=== PATIENT | female | born 1990 | race Caucasian/White ===

== ENCOUNTER 2018-02-28 03:36 | Emergency (ER) | payer MEDICAID, OTHER ==
[~2018-02-28 03:36] MED LIST: BACDS PO; LEVO1TAB48 PO; PHENA200 PO
[2018-02-28] MEDS ORDERED: PREN-127 PO (03:48)
[2018-02-28] MEDS ORDERED: METO-224 PO (03:48)
--- NOTE | 2018-02-28 03:53 | ER Report ---
History and Physical Time Seen By MD: 03:53 Hx. of Stated Complaint: pt reports vomiting since 1330, no other symptoms. 12 wks HPI/ROS CHIEF COMPLAINT: vomiting HISTORY OF PRESENT ILLNESS: This is a 27 year old female. She has had vomiting since this afternoon. Not able to keep any food or liquid down since then. Feels dehydrated. Urine less and darker. Some abdominal cramping, but feels this is from her vomiting. Has some lower left back and lower abdominal left lower and suprapubic pain. No vaginal bleeding or cramping. No vaginal discharge. Normal bowels. Mild shortness of breath with the vomiting. No chest pain. Has note really had any problems with vomiting this . Recently moved from [place]. No family members with nausea and vomiting. Allergies: Coded Allergies: Penicillins (Verified Allergy, Mild, 02/28/18) Home Meds Active Scripts Promethazine Hcl (PROMETHAZINE HCL) 25 Mg Tablet, 25 MG PO Q8H Y for NAUSEA/ VOMITING, #20 TAB 0 Refills Prov:MEGAN ESCOBEDO MD 02/28/18 Reported Medications Vits W-Ca,Fe,Fa(<1MG) ( VITAMINS) 1 Each Tablet, 1 EACH PO DAILY, TAB 02/28/18 Metoclopramide Hcl (METOCLOPRAMIDE HCL) 10 Mg Tablet, 10 MG PO QID Y for NAUSEA/ VOMITING 02/28/18 Discontinued Reported Medications Phenazopyridine Hcl (Pyridium) 200 Mg Tab, 200 MG PO TID, 0 Refills 09/15/10 Trimethoprim/Sulfamethoxazole (Bactrim Ds 160-800 Mg) 1 Ea Tab, 1 EA PO BID, # 14 0 Refills 09/15/10 Levonorgestrel-Eth Estra (Lutera) 1 Tab Tablet, 1 TAB PO, 0 Refills 09/15/10 Reviewed Nurses Notes: Yes Hx Substance Use Disorder: No Hx Alcohol Use: Yes (3 BEERS THE LLAST 4 DAYS) Constitutional Vital Sign - Last 24 Hours 02/28/18 02/28/18 02/28/18 02/28/18 03:40 03:43 03:51 04:00 Temp 98.3 Pulse 78 87 Resp 16 B/P (MAP) 104/64 104/64 (77) 101/70 (80) Pulse Ox 97 96 O2 Delivery Room Air 02/28/18 02/28/18 02/28/18 02/28/18 04:06 04:11 04:26 04:30 Pulse 82 92 86 B/P (MAP) 101/66 (78) Pulse Ox 97 97 99 02/28/18 02/28/18 02/28/18 02/28/18 04:41 04:46 05:03 05:16 Pulse 84 89 97 B/P (MAP) 88/60 (69) Pulse Ox 98 97 98 02/28/18 02/28/18 02/28/18 02/28/18 05:30 05:31 05:36 05:41 Pulse 87 B/P (MAP) 97/71 (80) Pulse Ox 95 100 94 Physical Exam General Appearance: The patient is alert, has no immediate need for airway protection and no current signs of toxicity. ENT: Normal oral mucosa. Moist mucous membranes. Respiratory: Chest is non tender, lungs are clear to auscultation. Cardiac: regular rate and rhythm Gastrointestinal: Abdomen is soft non-distended, some pain with palpation suprapubic and left lower, some pain in left flank and lower back, bowel sounds normal. DIFFERENTIAL DIAGNOSIS: After history and physical exam differential diagnosis was considered for vomiting today, feeling dehydrated, could be urinary tract infection based on location of pain and the vomiting, also possible viral syndrome Medical Decision Making Data Points Result Diagram: 02/28/18 0351 02/28/18 0351 Laboratory Hematology Test 02/28/18 03:41 02/28/18 03:51 Urine Color Yellow Urine Clarity Clear Urine pH 5.0 pH (4.8-9.5) Urine Specific [place] 1.020 Urine Protein Negative mg/dL (NEGATIVE) Urine Glucose (UA) Negative mg/dL (NEGATIVE) Urine Ketones 20 mg/dL (NEGATIVE) Urine Blood Negative (NEGATIVE) Urine Nitrite Negative (NEGATIVE) Urine Bilirubin Negative (NEGATIVE) Urine Urobilinogen Negative mg/dL (0.2-1.9) Urine Leukocyte Esterase Negative (NEGATIVE) Urine RBC 1 /HPF (0-2/HPF) Urine WBC 1 /HPF (0-5/HPF) Urine Squamous Epithelial Cells Many /LPF (</=FEW) Urine Transitional Epithelial Cells Few /LPF (NONE-FEW) Urine Bacteria Negative /HPF (NONE-FEW) Urine Mucus Few /HPF (NONE-FEW) Red Blood Count 4.44 M/uL (4.17-5.56) Mean Corpuscular Volume 84.3 fL (80.0-96.0) Mean Corpuscular Hemoglobin 29.6 pg (26.0-33.0) Mean Corpuscular Hemoglobin Concent 35.1 g/dL (32.0-36.0) Red Cell Distribution Width 15.2 % (11.5-14.5) Mean Platelet Volume 8.4 fL (7.2-11.1) Neutrophils (%) (Auto) 85.1 % (39.4-72.5) Lymphocytes (%) (Auto) 9.7 % (17.6-49.6) Monocytes (%) (Auto) 4.7 % (4.1-12.4) Eosinophils (%) (Auto) 0.2 % (0.4-6.7) Basophils (%) (Auto) 0.3 % (0.3-1.4) Nucleated RBC Relative Count (auto) 0.0 /100WBC Neutrophils # (Auto) 6.4 K/uL (2.0-7.4) Lymphocytes # (Auto) 0.7 K/uL (1.3-3.6) Monocytes # (Auto) 0.4 K/uL (0.3-1.0) Eosinophils # (Auto) 0.0 K/uL (0.0-0.5) Basophils # (Auto) 0.0 K/uL (0.0-0.1) Nucleated RBC Absolute Count (auto) 0.00 K/uL Sodium Level 133 mmol/L (137-145) Potassium Level 3.5 mmol/L (3.5-5.0) Chloride Level 100 mmol/L (98-107) Carbon Dioxide Level 23 mmol/L (22-31) Blood Urea Nitrogen 9 mg/dl (7-18) Creatinine 0.50 mg/dl (0.52-1.04) Glomerular Filtration Rate Calc > 60.0 Random Glucose 101 mg/dl (75-110) Calcium Level 9.2 mg/dl (8.4-10.2) Total Bilirubin 0.6 mg/dl (0.2-1.3) Aspartate Amino Transf (AST/SGOT) 17 U/L (0-35) Alanine Aminotransferase (ALT/SGPT) 19 U/L (0-56) Alkaline Phosphatase 64 U/L (0-126) Total Protein 7.9 g/dl (6.3-8.2) Albumin 4.4 g/dl (3.5-5.0) Chemistry Test 02/28/18 03:41 02/28/18 03:51 Urine Color Yellow Urine Clarity Clear Urine pH 5.0 pH (4.8-9.5) Urine Specific [place] 1.020 Urine Protein Negative mg/dL (NEGATIVE) Urine Glucose (UA) Negative mg/dL (NEGATIVE) Urine Ketones 20 mg/dL (NEGATIVE) Urine Blood Negative (NEGATIVE) Urine Nitrite Negative (NEGATIVE) Urine Bilirubin Negative (NEGATIVE) Urine Urobilinogen Negative mg/dL (0.2-1.9) Urine Leukocyte Esterase Negative (NEGATIVE) Urine RBC 1 /HPF (0-2/HPF) Urine WBC 1 /HPF (0-5/HPF) Urine Squamous Epithelial Cells Many /LPF (</=FEW) Urine Transitional Epithelial Cells Few /LPF (NONE-FEW) Urine Bacteria Negative /HPF (NONE-FEW) Urine Mucus Few /HPF (NONE-FEW) White Blood Count 7.6 k/uL (4.5-11.0) Red Blood Count 4.44 M/uL (4.17-5.56) Hemoglobin 13.1 g/dL (12.0-16.0) Hematocrit 37.4 % (34.0-47.0) Mean Corpuscular Volume 84.3 fL (80.0-96.0) Mean Corpuscular Hemoglobin 29.6 pg (26.0-33.0) Mean Corpuscular Hemoglobin Concent 35.1 g/dL (32.0-36.0) Red Cell Distribution Width 15.2 % (11.5-14.5) Platelet Count 189 K/uL (150-450) Mean Platelet Volume 8.4 fL (7.2-11.1) Neutrophils (%) (Auto) 85.1 % (39.4-72.5) Lymphocytes (%) (Auto) 9.7 % (17.6-49.6) Monocytes (%) (Auto) 4.7 % (4.1-12.4) Eosinophils (%) (Auto) 0.2 % (0.4-6.7) Basophils (%) (Auto) 0.3 % (0.3-1.4) Nucleated RBC Relative Count (auto) 0.0 /100WBC Neutrophils # (Auto) 6.4 K/uL (2.0-7.4) Lymphocytes # (Auto) 0.7 K/uL (1.3-3.6) Monocytes # (Auto) 0.4 K/uL (0.3-1.0) Eosinophils # (Auto) 0.0 K/uL (0.0-0.5) Basophils # (Auto) 0.0 K/uL (0.0-0.1) Nucleated RBC Absolute Count (auto) 0.00 K/uL Glomerular Filtration Rate Calc > 60.0 Calcium Level 9.2 mg/dl (8.4-10.2) Total Bilirubin 0.6 mg/dl (0.2-1.3) Aspartate Amino Transf (AST/SGOT) 17 U/L (0-35) Alanine Aminotransferase (ALT/SGPT) 19 U/L (0-56) Alkaline Phosphatase 64 U/L (0-126) Total Protein 7.9 g/dl (6.3-8.2) Albumin 4.4 g/dl (3.5-5.0) Urinalysis Test 02/28/18 03:41 Urine Color Yellow Urine Clarity Clear Urine pH 5.0 pH (4.8-9.5) Urine Specific [place] 1.020 Urine Protein Negative mg/dL (NEGATIVE) Urine Glucose (UA) Negative mg/dL (NEGATIVE) Urine Ketones 20 mg/dL (NEGATIVE) Urine Blood Negative (NEGATIVE) Urine Nitrite Negative (NEGATIVE) Urine Bilirubin Negative (NEGATIVE) Urine Urobilinogen Negative mg/dL (0.2-1.9) Urine Leukocyte Esterase Negative (NEGATIVE) Urine RBC 1 /HPF (0-2/HPF) Urine WBC 1 /HPF (0-5/HPF) Urine Squamous Epithelial Cells Many /LPF (</=FEW) Urine Transitional Epithelial Cells Few /LPF (NONE-FEW) Urine Bacteria Negative /HPF (NONE-FEW) Urine Mucus Few /HPF (NONE-FEW) ED Course/Re-evaluation Clinical Indication for ER IV: Hydration, IV Access ED Course Phenergan IV and Benadryl IV given along with a liter of normal saline. The phenergan made her feel a little jumpy. She does feel much better. Still some nausea, but no more vomiting. Started a second liter of saline, then discharged home. Decision to Disposition Date: Feb 28, 2018 Decision to Disposition Time: 05:39 Depart Departure Latest Vital Signs Vital Signs Date Time Temp Pulse Resp B/P (MAP) Pulse Ox O2 Delivery O2 Flow Rate FiO2 02/28/18 05:41 94 02/28/18 05:36 87 02/28/18 05:30 97/71 (80) 02/28/18 03:40 98.3 16 Room Air Impression: Primary Impression: Vomiting during Condition: Improved Disposition: HOME OR SELF-CARE New Scripts Promethazine Hcl (PROMETHAZINE HCL) 25 Mg Tablet 25 MG PO Q8H Y for NAUSEA/VOMITING, #20 TAB 0 Refills Prov: MEGAN ESCOBEDO MD 02/28/18 Patient Instructions: Nausea and Vomiting in (ED) Additional Instructions: Small frequent sips of fluids. You can use Phenergan 25mg, one every 8 hours as needed for vomiting. Make an appointment to establish care with a local TIRE REPAIR MECHANIC for further care. Return to the ER as needed for further nausea/vomiting. MEGAN ESCOBEDO MD Feb 28, 2018 03:53
[2018-02-28] MEDS ORDERED: NS(*) 0.9% 1000 ML BAG 1,000 ML IV ONE ×2 (04:00→05:00)
[2018-02-28] MEDS ORDERED: PROMETHAZINE 25 MG/ML 1 ML AMP IVP ONE (04:00)
[2018-02-28] MEDS ORDERED: diphenhydrAMINE 50 MG/ML VIAL IVP ONE (04:00)
[2018-02-28 04:17] LABS: PLATELET COUNT, AUTOMATED 189 K/uL (150-450)
[2018-02-28 05:30] VITALS: BP 97/71
[2018-02-28] MEDS ORDERED: PROM-110 PO (05:40)
== END 2018-02-28 05:45 | disposition home or self-care (01) ==
LOC: ER 04:03
DX: O21.9 Vomiting of pregnancy, unspecified (principal); Z3A.12 12 weeks gestation of pregnancy; M54.5 Low back pain
CPT/HCPCS: 81001; 85025; 87088; 96361; 96374; 96375; 99284; J1200; J2550; J7030; 82040; 82247; 82310; 82374; 82435; 82565; 82947; 84075; 84132; 84155; 84295; 84450; 84460; 84520

== ENCOUNTER → 2018-04-27 | Outpatient (CLI) | payer MEDICAID ==
[~2018-04-27] MED LIST changes: +FERR159T PO; +METO-224 PO; +PREN-127 PO; +PROM-110 PO
--- NOTE | 2018-04-27 12:24 | RADIOLOGY IMAGING REPORT ---
FACILITY: [facility] - [place] PATIENT NAME: Antonia Woods : 1990 MR: [id number] V: [id number] EXAM DATE: ORDERING PHYSICIAN: YUE CAMACHO TECHNOLOGIST: Location: [facility] - [place] Patient: Antonia Woods : 1990 Visit/Account:[id number] Date of Sevice: 04/27/2018 OB ANATOMICAL SURVEY HISTORY: Anatomical survey COMPARISON: None. TECHNIQUE: Transabdominal imaging was performed for assessment of the fetus and maternal pelvic s tructures. Transvaginal imaging was not performed. FINDINGS: Intrauterine gestations: One. presentation: Cephalic. heart rate: 155 bpm. Amniotic fluid volume: Normal; ANTONIO 17.42 cm; MVP 5.51 cm. Placenta: Posterior. Uterus: Gravid, otherwise grossly unremarkable where visualized. Maternal adnexa/ovaries: Grossly unremarkable, ovaries not visualized. Cervix: Grossly long and closed. Gestational Parameters: BPD: 4.87 cm, 43rd percentile HC: 18.26 cm, 31st percentile AC: 15.76 cm, 45th percentile FL: 3.52 cm, 50th percentile Average ultrasound age (AUA): 21 weeks/ zero days Estimated age based on LMP: 20 weeks/ six days, 50th percentile Estimated weight (EFW): 389 grams +/- 57 grams Anatomic Survey: Intracranial structures, 4-chamber heart, stomach, kidneys, urinary bladder, spine, 3-vessel cord and cord insertion are unremarkable. Two upper and two lower extremities visualized. IMPRESSION: Single viable fetus in cephalic presentation with an estimated gestational age of 21 weeks and zero d ays by measurements. Estimated weight is 389 g Normal ANTONIO 17.42 cm Report Dictated By: Della Dickinson MD at 04/27/2018 12:17 PM Report E-Signed By: Della Dickinson MD at 04/27/2018 12:21 PM WSN:[email or web address]
== END ==
LOC: RAD 08:01
PROVIDERS: ATTEND Student in an Organized Health Care Education/Training Program
DX: Z34.92 Encounter for supervision of normal pregnancy, unspecified, second trimester (principal); Z3A.21 21 weeks gestation of pregnancy

== ENCOUNTER → 2018-05-28 | Outpatient (CLI) | payer MEDICAID ==
[~2018-05-28] VITALS: Ht 160 cm; Wt 63.0 kg
[~2018-05-28] MED LIST changes: +FAMOTIDINE 20 MG TAB PO ONE; +ONDANSETRON 4 MG ODT TABDP SL ONE
[2018-05-28 12:30] VITALS: Ht 160 cm; Wt 63.0 kg
--- NOTE | 2018-05-28 14:30 | RADIOLOGY IMAGING REPORT ---
FACILITY: [facility] - [place] PATIENT NAME: Antonia Woods : 1990 MR: [id number] V: [id number] EXAM DATE: [id number] ORDERING PHYSICIAN: DAYLIN IRELAND TECHNOLOGIST: Location: [facility] Patient: Antonia Woods : 1990 Visit/Account:[id number] Date of Sevice: 05/28/2018 Limited OB ultrasound Indication: 25 week gestation with cramping and decreased movement. Comparison: Ultrasound dated April 27, 2018. FINDINGS: Intrauterine gestations: one presentation: Vertex heart rate: 146 bpm Amniotic fluid index: 22.5 cm Largest amniotic fluid pocket 6.3 cm Placenta: Posterior without previa. No evidence for abruption. Cervix: Not well visualized Gestational Parameters: BPD: 6.15 cm 25 weeks and 0 days HC: 22.80 cm 24 weeks and 6 days AC: 20.20 cm 24 weeks and 6 days FL: 4.56 cm 25 weeks and 1 day Average ultrasound age (AUA): 25 weeks and 0 days Estimated gestational age based on given LMP datin weeks and 1 day PASQUALE: 09/10/2018 based on today's ultrasound age. Estimated weight (EFW): 731 g +/-110 g EFW for given LMP datin percentile IMPRESSION: 1. No acute findings. No evidence for abruption. 2. Single live intrauterine gestation; estimated ultrasound age 25 weeks and 0 days. Report Dictated By: Rubio Lan MD at 05/28/2018 2:22 PM Report E-Signed By: Rubio Lan MD at 05/28/2018 2:27 PM WSN:[id number]
== END ==
LOC: L&D 12:01 → UNDOADMIN 12:04 → OB 12:04 → UNDODISIN 15:05 → EDSTATUS 05-29 11:22
PROVIDERS: ATTEND Obstetrics & Gynecology
DX: O26.892 Other specified pregnancy related conditions, second trimester (principal); Z3A.25 25 weeks gestation of pregnancy
CPT/HCPCS: 59025; 76815; S0119

== ENCOUNTER → 2018-06-21 | Outpatient (CLI) | payer MEDICAID ==
[2018-05-28 12:30] VITALS: BMI 24.6
[~2018-06-21] MED LIST changes: +ALB18R INH; +AZIT-18 PO; +DIPH0.5D12 IM; -FAMOTIDINE 20 MG TAB PO ONE; -ONDANSETRON 4 MG ODT TABDP SL ONE; +PRED20TA6 PO
[2018-06-21 10:37] LABS: PLATELET COUNT, AUTOMATED 187 K/uL (150-450)
== END ==
LOC: LAB 09:12
PROVIDERS: ATTEND Student in an Organized Health Care Education/Training Program
DX: Z34.92 Encounter for supervision of normal pregnancy, unspecified, second trimester (principal)
CPT/HCPCS: 36415; 82950; 85025

== ENCOUNTER 2018-06-23 16:03 | Emergency (ER) | payer MEDICAID ==
[2018-05-28 12:30] VITALS: Wt 64.9 kg
[~2018-06-23 16:03] MED LIST changes: -ALB18R INH; -AZIT-18 PO; -PRED20TA6 PO
--- NOTE | 2018-06-23 16:13 | ER Report ---
History and Physical Time Seen By MD: 16:14 Hx. of Stated Complaint: upper resp symptoms HPI/ROS CHIEF COMPLAINT: Cough, shortness of breath HISTORY OF PRESENT ILLNESS: 28-year-old female patient presents to emergency mena with complaint of cough and shortness of breath. Patient states she's been feeling ill for a day and a half. She states that she is taken some Robitussin cough syrup which has not seemed to help with her cough. She denies having any fevers or chills. She states that she does have a productive cough. She states that she's noticed some shortness of breath with eating. REVIEW OF SYSTEMS: Respiratory: As noted above Cardiovascular: No chest pain, no palpitations. Gastrointestinal: No vomiting, no abdominal pain. Musculoskeletal: No back pain. Allergies: Coded Allergies: Penicillins (Verified Allergy, Mild, 06/23/18) Home Meds Active Scripts Albuterol Sulfate (VENTOLIN HFA) 18 Gm Inh, 2 PUFF INH Q4-6H PRN for SHORTNESS OF BREATH, #1 INH Prov:LI [facility] 06/23/18 Prednisone (PREDNISONE) 20 Mg Tablet, 40 MG PO DAILY, #10 TAB Prov:LI GLORIA [facility] 06/23/18 Azithromycin 250 Mg Tab (AZITHROMYCIN 250 MG TAB) 250 Mg Tablet, 1 TAB PO QDAY, #6 TAB Take 2 tabs today and then 1 tab a day until gone. Prov:LI GLORIA [facility] 06/23/18 Promethazine Hcl (PROMETHAZINE HCL) 25 Mg Tablet, 25 MG PO Q8H PRN for NAUSEA/VOMITING, #20 TAB 0 Refills Prov:DOUGYUE FRANCIS DO 03/20/18 Reported Medications Ferrous Sulfate, Dried (IRON) Unknown Strength Tablet.er, PO 03/20/18 Vits W-Ca,Fe,Fa(<1MG) ( VITAMINS) 1 Each Tablet, 1 EACH PO DAILY, TAB 02/28/18 Metoclopramide Hcl (METOCLOPRAMIDE HCL) 10 Mg Tablet, 10 MG PO QID PRN for NAUSEA/VOMITING 02/28/18 Past Medical/Surgical History Patient has a past medical history of migraines, frequent UTI. Patient has a surgical history wisdom teeth removal. Reviewed Nurses Notes: Yes Hx Smoking: Yes Smoking Status: Former Smoker Hx Substance Use Disorder: No Hx Alcohol Use: Yes (3 BEERS THE LLAST 4 DAYS) Constitutional Vital Sign - Last 24 Hours 06/23/18 06/23/18 06/23/18 06/23/18 16:03 16:09 16:10 16:26 Temp 98.5 Pulse ??? 102 103 Resp 14 18 B/P (MAP) 117/69 (85) 117/69 Pulse Ox 93 O2 Delivery Room Air 06/23/18 06/23/18 06/23/18 06/23/18 16:26 16:30 16:33 16:38 Pulse 107 98 Resp 12 B/P (MAP) 100/41 (60) 100/41 (60) Pulse Ox 96 93 96 O2 Delivery Room Air 06/23/18 06/23/18 06/23/18 06/23/18 17:00 17:03 17:30 17:33 Pulse 107 99 B/P (MAP) 96/58 (71) 95/70 (78) Pulse Ox 93 94 Physical Exam General Appearance: The patient is alert, has no immediate need for airway protection and no current signs of toxicity. Respiratory: Chest is non tender, lungs are diminished with wheezing in the upper lobes bilaterally to auscultation. Cardiac: regular rate and rhythm Gastrointestinal: Abdomen is soft and non tender, no masses, bowel sounds normal. Musculoskeletal: Neck: Neck is supple and non tender. Extremities have full range of motion and are non tender. Skin: No rashes or lesions. DIFFERENTIAL DIAGNOSIS: After history and physical exam differential diagnosis was considered for shortness of breath including but not limited to pulmonary infectious process, COPD, asthma, pulmonary embolus and congestive heart failure. Medical Decision Making Data Points Result Diagram: 06/23/18 1628 06/23/18 1628 Laboratory Hematology Test 06/23/18 16:28 Red Blood Count 4.13 M/uL (4.17-5.56) Mean Corpuscular Volume 86.8 fL (80.0-96.0) Mean Corpuscular Hemoglobin 29.1 pg (26.0-33.0) Mean Corpuscular Hemoglobin Concent 33.5 g/dL (32.0-36.0) Red Cell Distribution Width 13.7 % (11.5-14.5) Mean Platelet Volume 8.4 fL (7.2-11.1) Neutrophils (%) (Auto) 82.0 % (39.4-72.5) Lymphocytes (%) (Auto) 10.2 % (17.6-49.6) Monocytes (%) (Auto) 5.9 % (4.1-12.4) Eosinophils (%) (Auto) 1.7 % (0.4-6.7) Basophils (%) (Auto) 0.2 % (0.3-1.4) Nucleated RBC Relative Count (auto) 0.0 /100WBC Neutrophils # (Auto) 10.1 K/uL (2.0-7.4) Lymphocytes # (Auto) 1.3 K/uL (1.3-3.6) Monocytes # (Auto) 0.7 K/uL (0.3-1.0) Eosinophils # (Auto) 0.2 K/uL (0.0-0.5) Basophils # (Auto) 0.0 K/uL (0.0-0.1) Nucleated RBC Absolute Count (auto) 0.00 K/uL Sodium Level 137 mmol/L (137-145) Potassium Level 4.1 mmol/L (3.5-5.0) Chloride Level 107 mmol/L (98-107) Carbon Dioxide Level 21 mmol/L (22-31) Blood Urea Nitrogen 7 mg/dl (7-18) Creatinine 0.50 mg/dl (0.52-1.04) Glomerular Filtration Rate Calc > 60.0 Random Glucose 102 mg/dl (75-110) Calcium Level 8.7 mg/dl (8.4-10.2) Total Bilirubin 0.3 mg/dl (0.2-1.3) Aspartate Amino Transf (AST/SGOT) 12 U/L (0-35) Alanine Aminotransferase (ALT/SGPT) 15 U/L (0-56) Alkaline Phosphatase 97 U/L (0-126) Total Protein 7.2 g/dl (6.3-8.2) Albumin 3.5 g/dl (3.5-5.0) Chemistry Test 06/23/18 16:28 White Blood Count 12.3 k/uL (4.5-11.0) Red Blood Count 4.13 M/uL (4.17-5.56) Hemoglobin 12.0 g/dL (12.0-16.0) Hematocrit 35.9 % (34.0-47.0) Mean Corpuscular Volume 86.8 fL (80.0-96.0) Mean Corpuscular Hemoglobin 29.1 pg (26.0-33.0) Mean Corpuscular Hemoglobin Concent 33.5 g/dL (32.0-36.0) Red Cell Distribution Width 13.7 % (11.5-14.5) Platelet Count 207 K/uL (150-450) Mean Platelet Volume 8.4 fL (7.2-11.1) Neutrophils (%) (Auto) 82.0 % (39.4-72.5) Lymphocytes (%) (Auto) 10.2 % (17.6-49.6) Monocytes (%) (Auto) 5.9 % (4.1-12.4) Eosinophils (%) (Auto) 1.7 % (0.4-6.7) Basophils (%) (Auto) 0.2 % (0.3-1.4) Nucleated RBC Relative Count (auto) 0.0 /100WBC Neutrophils # (Auto) 10.1 K/uL (2.0-7.4) Lymphocytes # (Auto) 1.3 K/uL (1.3-3.6) Monocytes # (Auto) 0.7 K/uL (0.3-1.0) Eosinophils # (Auto) 0.2 K/uL (0.0-0.5) Basophils # (Auto) 0.0 K/uL (0.0-0.1) Nucleated RBC Absolute Count (auto) 0.00 K/uL Glomerular Filtration Rate Calc > 60.0 Calcium Level 8.7 mg/dl (8.4-10.2) Total Bilirubin 0.3 mg/dl (0.2-1.3) Aspartate Amino Transf (AST/SGOT) 12 U/L (0-35) Alanine Aminotransferase (ALT/SGPT) 15 U/L (0-56) Alkaline Phosphatase 97 U/L (0-126) Total Protein 7.2 g/dl (6.3-8.2) Albumin 3.5 g/dl (3.5-5.0) ED Course/Re-evaluation ED Course Patient was admitted and examined, history and physical were obtained. Differential diagnoses were considered. On examination lungs were wheezy in the upper lobes, they were diminished in the bases. A breathing treatment was done. I did improve her air movement considerably and decrease her wheezing. CBC and CMP were done. Patient did have an elevated white count of 12,000 with a left shift. I did order an x-ray which the patient refused with concerns about harm to the baby. As result of that we will go ahead and treat her as if she has a bronchitis. I did discuss the case with Dr. Chaney, subassembly assembler. I asked him if he felt that patient needed to have a nonstress test. That was done here in the emergency room with the heart rate remaining between 140 and 160 bpm. We will go ahead and discharge patient home with a prescription of antibiotics, inhaler, steroids. She is follow-up with her subassembly assembler early next week. Patient verbalized understanding and agreement with plan. Decision to Disposition Date: Jun 23, 2018 Decision to Disposition Time: 17:05 Depart Departure Latest Vital Signs Vital Signs Date Time Temp Pulse Resp B/P (MAP) Pulse Ox O2 Delivery O2 Flow Rate FiO2 06/23/18 17:33 99 94 06/23/18 17:30 95/70 (78) 06/23/18 16:38 12 06/23/18 16:26 Room Air 06/23/18 16:10 98.5 Impression: Primary Impression: Bronchitis Condition: Improved Disposition: HOME OR SELF-CARE Referrals: YUE CORDOBA DO (PCP) [place] Albuterol Sulfate (VENTOLIN HFA) 18 Gm Inh 2 PUFF INH Q4-6H PRN for SHORTNESS OF BREATH, #1 INH Prov: LI GLORIA 06/23/18 Prednisone (PREDNISONE) 20 Mg Tablet 40 MG PO DAILY, #10 TAB Prov: LI GLORIA 06/23/18 Azithromycin 250 Mg Tab (AZITHROMYCIN 250 MG TAB) 250 Mg Tablet 1 TAB PO QDAY, #6 TAB Take 2 tabs today and then 1 tab a day until gone. Prov: LI GLORIA 06/23/18 Patient Instructions: Acute Bronchitis (ED) Additional Instructions: Increase fluid intake. Get plenty of rest. Take the medication as directed. Follow up with Dr. Cordoba early next week. Return to the ER if condition worsens. LI GLORIA Jun 23, 2018 16:13
[2018-06-23] MEDS ORDERED: ALBUTEROL 2.5 MG/3 ML NEB NEB ONE (16:20)
[2018-06-23 16:35] LABS: PLATELET COUNT, AUTOMATED 207 K/uL (150-450)
[2018-06-23] MEDS ORDERED: PRED20TA6 PO (17:00)
[2018-06-23] MEDS ORDERED: AZIT-18 PO (17:00)
[2018-06-23 17:30] VITALS: BP 95/70
[2018-06-23] MEDS ORDERED: ALB18R INH (17:58)
== END 2018-06-23 18:08 | disposition home or self-care (01) ==
LOC: ER 16:13
DX: J40 Bronchitis, not specified as acute or chronic (principal)
CPT/HCPCS: 36415; 85025; 94640; 99283; J7613; 82040; 82247; 82310; 82374; 82435; 82565; 82947; 84075; 84132; 84155; 84295; 84450; 84460; 84520

== ENCOUNTER → 2018-08-10 | Outpatient (CLI) | payer MEDICAID ==
[2018-05-28 12:30] VITALS: BMI 24.6
[~2018-08-10] MED LIST changes: +ALB18R INH; +AZIT-17 PO; +AZIT-18 PO; +PRED20TA6 PO
--- NOTE | 2018-08-10 12:30 | RADIOLOGY IMAGING REPORT ---
FACILITY: [facility] PATIENT NAME: Antonia Woods : 1990 MR: [id number] V: [id number] EXAM DATE: ORDERING PHYSICIAN: YUE CAMACHO TECHNOLOGIST: Location: [facility] - [place] Patient: Antonia Woods : 1990 Visit/Account:[id number] Date of Sevice: 08/10/2018 [facility] [place] OB LIIMITED HISTORY: size less than dates COMPARISON: 05/28/2018 FINDINGS: Intrauterine gestations: 1 presentation: Vertex heart rate: 135 bpm Amniotic fluid volume: ANTONIO 11.7,cm; Largest amniotic fluid pocket 4.3 cm Placenta: Posterior No placenta previa or retroplacental hemorrhage. Uterus: Gravid, otherwise normal Maternal adnexa: Negative Cervix: Closed Gestational Parameters: BPD: 8.9 cm; 36 weeks/ 2 days HC: 32.1 cm; 36 weeks/ 2 days AC: 32.3 cm; 36 weeks/ 2 days FL: 7.0 cm; 36 weeks/ 1 days Average ultrasound age (AUA): 36 weeks/ 2 days Estimated weight (EFW): 2868 grams +/- 419 grams. 60th percentile based on LMP IMPRESSION: 1. IUP of 36 weeks two days. PASQUALE of 09/05/2018. This correlates five days ahead of the previous ultr asound that had an PASQUALE calculated at 09/10/2017. This is two days ahead of the initial ultrasound fro m 04/27/2018 the heading PASUQALE calculated at 09/07/2018. Report Dictated By: Bobby Nunez MD at 08/10/2018 12:20 PM Report E-Signed By: Bobby Nunez MD at 08/10/2018 12:26 PM WSN:[email or web address]
== END ==
LOC: RAD 09:04
PROVIDERS: ATTEND Student in an Organized Health Care Education/Training Program
DX: O26.843 Uterine size-date discrepancy, third trimester (principal)

== ENCOUNTER → 2018-08-10 | Outpatient (CLI) | payer MEDICAID ==
[2018-05-28 12:30] VITALS: BMI 24.6
== END ==
LOC: LAB 09:42
PROVIDERS: ATTEND Student in an Organized Health Care Education/Training Program
DX: Z34.93 Encounter for supervision of normal pregnancy, unspecified, third trimester (principal)
CPT/HCPCS: 87081

== ENCOUNTER 2018-08-29 02:10 | Outpatient (CLI) | payer MEDICAID ==
[~2018-08-29] VITALS: Ht 152.4 cm; Wt 68.0 kg
[2018-08-29] MEDS ORDERED: LR(*) 1000 ML BAG 1,000 ML IV PRN ×2 (02:13→03:19)
[2018-08-29 04:16] VITALS: Ht 152.4 cm; Wt 68.0 kg
[2018-08-29 04:16] LABS: PLATELET COUNT, AUTOMATED 209 K/uL (150-450)
== END 2018-08-29 05:50 | disposition home or self-care (01) ==
LOC: L&D 02:10 → UNDOADMOB 02:10 → OB 02:10 → L&D 05:50 → UNDODISOB 05:50 → EDSTATUS 09-08 07:28
PROVIDERS: ATTEND Obstetrics & Gynecology
DX: O60.03 Preterm labor without delivery, third trimester (principal); Z3A.38 38 weeks gestation of pregnancy
CPT/HCPCS: 81001; 82570; 83615; 84156; 84550; 85025; 86850; 86900; 86901; G0378; G0379; J7120; 82040; 82247; 82310; 82374; 82435; 82565; 82947; 84075; 84132; 84155; 84295; 84450; 84460; 84520; 99213

== ENCOUNTER 2018-08-31 14:04 | Inpatient (IN) | payer MEDICAID ==
[~2018-08-31] VITALS: Ht 152.4 cm; Wt 68.0 kg
[2018-08-31 14:22] VITALS: BP 106/69; Ht 152.4 cm; Wt 68.0 kg
[2018-08-31] MEDS ORDERED: OXYTOCIN 30 UNIT/D5LR 500 ML 500 ML IV PRN (14:58)
[2018-08-31] MEDS ORDERED: FAMOTIDINE(*) 20MG/50ML PREMIX 50 ML IVPB PRN (14:58)
[2018-08-31] MEDS ORDERED: FLUSH 10 ML SYR IVP PRN (15:00)
[2018-08-31] MEDS ORDERED: fentaNYL CITR 100 MCG/2 ML AMP IVP PRN (15:00)
[2018-08-31] MEDS ORDERED: LIDOCAINE/SOD BICARB 8.4% SYR SC PRN (15:00)
[2018-08-31] MEDS ORDERED: METOCLOPRAMIDE 10 MG/2 ML SDV IVP PRN (15:00)
[2018-08-31] MEDS ORDERED: ONDANSETRON 4 MG/2 ML VIAL IVP PRN (15:00)
[2018-08-31] MEDS ORDERED: LIDOCAINE 1% LOCAL 300 MG/30ML INJ PRN (15:00)
[2018-08-31 15:37] LABS: PLATELET COUNT, AUTOMATED 173 K/uL (150-450)
--- NOTE | 2018-08-31 15:41 | History & Physical ---
History of Present Illness Age of Patient: 28 : 3 Para or TPAL: 2 EDC per U/S: Sep 08, 2018 Estimated Gestational Age: 38.6 Chief Complaint Water broke History of Present Illness 28-year-old at 38-6/7 weeks gestation by 1st trimester ultrasound presents to labor and delivery with a chief complaint of loss of amniotic fluid. Patient reports she thinks her water broke around 1:15 this afternoon. Reports clear gush of fluid that is continued since then. Patient denies any vaginal bleeding. Reports good Edell movement. No fevers or chills. Irregular contractions. History Patient's Blood Type: A Positive Rubella Status: Immune Group B Strep Screen: Negative Obstetrical History: 2 last labor was 12 hours long. Past Medical History: Noncontributory Allergies: Coded Allergies: Penicillins (Verified Allergy, Mild, 06/23/18) Social History: Denies 3 Family History: FH: anemia MOTHER Med Rec Home Meds Active Scripts Albuterol Sulfate (VENTOLIN HFA) 18 Gm Inh, 2 PUFF INH Q4-6H PRN for SHORTNESS OF BREATH, #1 INH Prov:LI GLORIA COMMERCIAL DESIGNER 06/23/18 Reported Medications Ferrous Sulfate, Dried (IRON) Unknown Strength Tablet.er, PO 03/20/18 Vits W-Ca,Fe,Fa(<1MG) ( VITAMINS) 1 Each Tablet, 1 EACH PO DAILY, TAB 02/28/18 Discontinued Reported Medications Metoclopramide Hcl (METOCLOPRAMIDE HCL) 10 Mg Tablet, 10 MG PO QID PRN for NAUSEA/VOMITING 02/28/18 Discontinued Scripts Azithromycin (Z-PACK) 250 Mg Tablet, 1-2 TAB PO QDAY, #6 DOSE-PACK 0 Refills Take 2 tablets on the first day, then 1 tablet per day for four days. Prov:YUE CAMACHO DO 07/20/18 Review of Systems All Systems Reviewed/Normal: Yes, Except as Noted Constitutional: No Fever, No Weight Loss, No Weight Gain, No Chills, No Night Sweats, No Other Neurological: No Syncope, No Confusion, No Weakness, No Dizziness, No Slurred Speech, No Other Eyes: No Vision Change, No Loss of Vision, No Photophobia, No Other ENT: No Hearing Loss, No Sinus Congestion, No Sore Throat, No Ear Ache, No Tinnitus, No Other Cardiovascular: No Chest Pain, No Palpitations, No Orthostatic Hypotension, No Other Respiratory: No Shortness of Breath, No Cough, No Wheezing, No Other Gastrointestinal: No Nausea, No Vomiting, No Diarrhea, No Dysphagia, No Constipation, No Early Satiety, No Hematemesis, No Hematochezia, No Melena, No Abdominal Pain, No Other Genitourinary: No Dysuria, No Hematuria, No Urinary Incontinence, No Other Musculoskeletal: No Pain, No Sprain, No Strain, No Impaired Mobility, No Other Psychiatric: No Depression, No Anxiety, No Other Exam General Exam General Apperance: Alert/Awake/No Acute Distress Neuro: No Gross deficits Eyes: Normal Extraocular Movement & Vison ENT: Normal Cardiovascular: Regular Rate and Rhythm Respiratory: No Respiratory Distress, Clear to Auscultation Abdomen: Soft, Non-Tender, Non-Distended, Gravid - Non-Tender : Normal Musculoskeletal: No Weakness/Pain Extremities: No Cyanosis,Clubbing or Edema Integumentary: Skin Intact without Lesions or Rash Psychological: Alert & Oriented X3, Appropriate Mood & Affect Vaginal Discharge/Fluid?: Clear Fluid Cervical Dialation: 4 Cervical Effacement (%): 75 Cervical Consistency: Soft Cervical Position: Mid Station: -2 Presentation: Vertex Uterine Contractions(Q min): 7 Uterine Contraction Strength: Moderate UC Resting Tone: Soft Fetus Feeling Movement?: Yes Heart Tones: 145 Heart Tone Variabilty: Moderate FHT Accelerations: 15X15 FHT Decelerations: None FHT Category: I Medical Decision Making Pre-Admit Course Medical Record Review: No VTE Prophylasis: Adult Deep Vein Thrombosis/Pulmonary: Yes Assessment and 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 Patient grossly ruptured. Patient will ambulate once IV has been started. If contractions don't develop shortly we'll start oxytocin for hypotonic contractions expect vaginal delivery. CNM will be involved with patient care. YUE CAMACHO DO Aug 31, 2018 15:41
[2018-08-31] MEDS ORDERED: BUPIVACAINE 0.25% MPF INJ EPI PRN (16:30)
[2018-08-31] MEDS ORDERED: LIDOCAINE/PF 2% 200MG/10ML AMP 200 MG/10 ML AMPUL EPI PRN (16:30)
[2018-08-31] MEDS ORDERED: LIDO/EPI 2% MPF 1:200,000 20ML EPI PRN (16:30)
[2018-08-31] MEDS ORDERED: FENTANYL/ROPIVACAINE 100 ML BAG EPI PRN (16:30)
[2018-08-31] MEDS ORDERED: EPIDURAL KEYS XX PRN (16:30)
[2018-08-31] MEDS ORDERED: BUPIVACAINE 0.5% INJ 30ML VIAL EPI PRN (16:30)
[2018-08-31] MEDS ORDERED: fentaNYL CITR 100 MCG/2 ML AMP IT PRN (16:30)
[2018-08-31] MEDS ORDERED: ACET500T68 PO (17:17)
[2018-08-31] MEDS ORDERED: RANI-366 PO (17:17)
--- NOTE | 2018-08-31 17:54 | Labor Progress Note ---
Labor Subjective Progress Notes Subjective Pt is starting to feel more uncomfortable and has to breathe through her contractions. She is requesting an epidural and some fentanyl in the mean time. Her grandmother is at the bedside with her 2 boys as her in [place]. +FM Feeling Movement?: Yes Vaginal Discharge/Fluid: Bloody Show, Green Tinged Fluid Labor Pain: Moderate Neurological: No Headache Eyes: No Visual Disturbances Labor Objective Vital Signs Vital Signs Date Time Temp Pulse Resp B/P (MAP) Pulse Ox O2 Delivery O2 Flow Rate FiO2 08/31/18 14:22 97.0 82 14 106/69 (81) 97 Room Air Vaginal Discharge/Fluid?: Bloody Show Cervical Dialation: 5 Cervical Effacement (%): 90 Cervical Consistency: Soft Cervical Position: Mid Station: -1 Presentation: Vertex Uterine Contractions(Q min): 2 Uterine Contraction Strength: Moderate UC Resting Tone: Soft Fetus Estimated Weight(grams): 3000 Heart Tones: 140 Heart Tone Variabilty: Moderate (periods of minimal) FHT Accelerations: Present FHT Decelerations: Early, Late (before IV fluids started), Variable (periodic) FHT Category: II General Exam General Appearance: Alert/Awake/No Acute Distress ENT: Normal Neck: No Masses Cardiovascular: Normal Rhythm & Peripheral Pulses Respiratory: No Respiratory Distress, Clear to Auscultation Abdomen: Soft, Non-Tender, Non-Distended : Normal Musculoskeletal: No Weakness/Pain Extremities: No Cyanosis,Clubbing or Edema Integumentary: Skin Intact without Lesions or Rash Psychological: Alert & Oriented X3, Appropriate Mood & Affect Other Result Diagram: 08/31/18 1528 Assessment and Plan Problems: (1) 38 weeks gestation of (2) Spontaneous rupture of amniotic membranes Assessment & Plan: Assessment/Plan: JACQUELINE is a 28 y.o. at 38 6/7 by LMP and first trimester US with an PASQUALE of 09/08/18 here for PROM at home. Labor state: Approaching active labor, fair cervical change in 3 hours. Will recheck cervix after epidural placement and start Pitocin if contractions space out. Reviewed R/B/A with Pt well-being: Category II FHT for periods of minimal variability and 2 late decelerations. Continuous monitoring for meconium and epidural Maternal well-being: VSS, normotensive and afebrile, PROM at home for clear fluid @, At last check light meconium. Monitor for s/s of chorioamnionitis. PNL: GBS neg, Type/Rh A+, rubella immune Pain Management: coping by breathing and moaning, requesting IV pain medication and epidural. EXTRUSION UTILITY WORKER call placed by RN and fentanyl given with fair relief. Feed: Breast c/b: * S>D: EFW normal * Anemia: Taking iron supplements Anticipate NSVB, re-evaluate after epidural placement for labor progression and start Pitocin for augmentation if needed CHAN AUGUST CNM Aug 31, 2018 17:54
[2018-08-31] MEDS: LR(*) 1000 ML BAG 1,000 ML IV SCH ×2 (18:13→18:42)
[2018-08-31 19:09] VITALS: BP 119/81
[2018-08-31] MEDS ORDERED: ACETAMINOPHEN 500 MG TAB PO ONE (19:15)
--- NOTE | 2018-08-31 19:29 | Anesthesia OB Pre-Anes Eval ---
History of Present Illness Anesthesia Start Date: Aug 31, 2018 Anesthesia Start Time: 18:15 OB Anesthesia Diagnosis: spontaneous labor Complications: None known EDC: Sep 08, 2018 : 3 Para: 2 Vital Signs: Vital Signs Date Time Temp Pulse Resp B/P (MAP) Pulse Ox O2 Delivery O2 Flow Rate FiO2 08/31/18 14:22 97.0 82 14 106/69 (81) 97 Room Air Pain Ratin Heart Tones: WNL Result Diagram: 08/31/18 1528 Height (Inches): 60.00 Weight (Pounds): 150 BMI (kg/m2): 29 Past Medical History Medical History: no pertinent history Previous Anesthesia: epidural Attended Childbirth Classes?: No Hx Anesthesia Reactions: No Hx Family Anesthesia Reaction: No Current Medications: pain medication (IV Fentenyl) Home Meds Reported Medications Acetaminophen (TYLENOL EXTRA STRENGTH) 500 Mg Tablet, 500 MG PO, TAB 08/31/18 Ranitidine Hcl (ZANTAC) 150 Mg Tablet, 150 MG PO BID, TAB 08/31/18 Ferrous Sulfate, Dried (IRON) Unknown Strength Tablet.er, PO 03/20/18 Vits W-Ca,Fe,Fa(<1MG) ( VITAMINS) 1 Each Tablet, 1 EACH PO DAILY, TAB 02/28/18 Discontinued Reported Medications Metoclopramide Hcl (METOCLOPRAMIDE HCL) 10 Mg Tablet, 10 MG PO QID PRN for NAUSEA/VOMITING 02/28/18 Discontinued Scripts Albuterol Sulfate (VENTOLIN HFA) 18 Gm Inh, 2 PUFF INH Q4-6H PRN for SHORTNESS OF BREATH, #1 INH Prov:LI GLORIA MANAGER OF HOSPITAL 06/23/18 Azithromycin (Z-PACK) 250 Mg Tablet, 1-2 TAB PO QDAY, #6 DOSE-PACK 0 Refills Take 2 tablets on the first day, then 1 tablet per day for four days. Prov:YUE CAMACHO DO 07/20/18 Allergies: Coded Allergies: Penicillins (Verified Allergy, Mild, 06/23/18) Anesthesia OB ROS Neurological: No migraines/headaches, No seizures, No neuropathy ENT: Denies Tooth caps, Denies Loose teeth, Denies Chipped teeth, Denies Dentures, Denies Bridges, Denies Retainers, Denies Veneers, Denies Implants, Denies Tongue ring, Denies Other Pulmonary: No asthma, No smoker (pks/day/yrs); other (had bronchitis 2 mo ago and used an inhaler then) Airway Class: ll Cardiovascular ROS: No edema, No arrhythmia GI ROS: clear liquids Last Solids Date: Aug 31, 2018 Last Solids Time: 12:30 ROS: No Herpes, No STD(s), No Liver Disease, No Renal Disease Endocrine ROS: No diabetes, No gestational diabetes, No thyroid disorder Musculoskeletal ROS: No low back pain, No low back injury, No scoliosis ASA Classification: 2 Assessment and Plan Anesthesia Plan: CSE Assessment Past Medical, Surgical, Family and Obstetric Histories reviewed. Please see ACOG chart. Epidural anesthesia risks, complications and benefits explained to patient's satisfaction for labor and vaginal delivery and/or section. General anesthesia risks and benefits explained to patient's satisfaction. Pt. also attended [facility] and heard this WEALTH MANAGEMENT CONSULTANT's talk on anesthesia at [facility]. Questions invited, none asked. ALTAF MORGAN CRNA Aug 31, 2018 19:29
--- NOTE | 2018-08-31 19:47 | Procedure Note ---
Anesthetic Placement Note Anesthesia Plan: CSE Permit for Anesthesia Signed: Yes Anesthesia Technique: Patient Sitting Anesthesia Prep: Chlorhexidine Interspace: L 3-4 Local Anesthetic: 1% Lidocaine, 25 Gauge Needle Amount Local - cc's: 2 Anesthesia Needle: 17g Touhy/Schliff Anesthesia Attempts: 1 Loss of Resistance: Air Depth of MOISES (cm): 6 Epidural Needle Placement: No CSF, No Blood, No Parasthesia Intrathecal Needle: 27 Gauge Pencan Cerebral Spinal Fluid: Yes, Clear Catheter Insertion (cm): 8 Catheter Type: Druon - Spring Wound Epidural Dressing: Tegaderm, Tape, Adhesive Swink Anesthesia Tray: Lot Number ([id number]), Expiration Date (2019-06-30), Reference Number ([id number]) Anesthesia Medications: Intrathecal Dose: mcg Fentanyl (15), mg Marcaine MPF (1.75), Time (184) Epidural Test Dose: 1.5 Lido/Epi (1:200,000), Dose - mL (2), Time (1900), Negative Epidural Loading Dose: 0.2% Ropivicaine, With Fentanyl 2mcg/ml, Dose - ml (5) Epidural Infusion: 0.2% Ropivicaine, With Fentanyl 2mcg/ml, Start Time: (1902) Epidural Pump Setting: Bolus Dose - mL (5), Lockout - Minutes (20), Maintenance Rate - mL/hr (4), Maximum per Hour - mL (19) Complications: None Comment: Tolerated procedure very well. Became come comfortable within 5 minutes of CSE. ALTAF MORGAN CRNA Aug 31, 2018 19:47
--- NOTE | 2018-08-31 19:50 | Anesthesia Progress Note ---
Progress/Maintenance Anesthesia Note Date: Aug 31, 2018 Anesthesia Note Time: 19:45 Pain Intensity: 1 Pump: On Pump Rate (ML/HR): 4 Sensory Level: T-12 Motor Level: Bending Knees-Bilateral Dilatation: 10 Position: Semi-Fowlers Drug Bolus: 0.5% Marcaine (3 ml), Other (Fentenyl 85 mcgs) Assessment and Plan Assessment Pt. now 10 cms. Bolus with Fentenyl and Marcaine 0.5% plain. Pt. feeling strong urge to push. ALTAF MORGAN CRNA Aug 31, 2018 19:50
[2018-08-31] MEDS ORDERED: HYDROCORTISONE 2.5% CR 30GM TB PR PRN (20:15)
[2018-08-31] MEDS ORDERED: MAGNESIUM HYDROXIDE* 30ML UDCP PO PRN (20:15)
[2018-08-31] MEDS ORDERED: APAP/HYDROCODONE 325/5 TAB PO PRN (20:15)
[2018-08-31] MEDS ORDERED: LANOLIN OINT 7 GM TUBE TP PRN (20:15)
[2018-08-31] MEDS ORDERED: BENZOCAINE 20% 60 ML BTL TP PRN (20:15)
[2018-08-31] MEDS ORDERED: ACETAMINOPHEN 325 MG TAB PO PRN (20:15)
--- NOTE | 2018-08-31 20:16 | Labor Progress Note ---
Labor Subjective Progress Notes Subjective Pt with the urge to push. 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 Apgars 7/8. Delivery by Gerson Balderas CNM. YUE CAMACHO DO Aug 31, 2018 20:16
--- NOTE | 2018-08-31 20:16 | OB Delivery Note ---
Delivery Note Vaginal Delivery Type: Spont. Vaginal Delivery Delivery Date: Aug 31, 2018 Delivery Time: 19:57 Estimated Gestational Age(wks): 38.6 Delivery Anesthesia: Epidural Infant Sex: Male Weight (gms): 2968 Apgars: 1 Minute, 5 Minute Repair Needed: Labial (right labial- no repair needed) Estimated Blood Loss: 300 Delivery Complications: Nuchal Cord (delivered through) Notes: WILFREDO is a 25yo G3 now P3 at 38 6/7 with OOC on 08/31/18 at 1530 with PROM at home at 1315 for clear moderate amount of fluid. Pt was admitted to the [facility] at 1530 in early labor Cervical exam on admission was 4/75/-2. Pt was GBS negative. FHR was monitored continuously and was CAT I primarily throughout first stage, but did have some CAT II for periodic late decelerations and minimal variability. Pt utilized an epidural primarily for pain management. Pt was completely dilated on 08/31/18 at 1930 and pt began pushing shortly there after. At 1957 pt had a NSVB of live male weighing 6lbs 8oz. APGARS 7 and 8. The head delivered spontaneously in the OA position and restituted ARAMIS w ith nuchal cord and was easily reduced after of the baby. The anterior shoulder was delivered a traumatically and the posterior shoulder followed. Body delivered easily. Face was wiped with nose and bulb suction and then placed on the maternal abdomen. The was dried and stimulated and noted to have a spontaneous cry and spontaneous movement of all 4 extremities. Cord was clamped X 2 by SAV after 2 minutes and cut by patient's spouse. Mother was in SF position. At 1999 the placenta and membranes delivered spontaneous and intact with a 3 vessel cord after gentle downward traction. 30 units of IV Pitocin was given to firm the uterus and given shortly after placenta delivery. Upon inspection of the perineum a right labial tear was visualized, but was Hemostatic so no repair necessary. EBL 300cc with fundus firm with minimal bleeding Mom and baby were left in stable condition. Mother plans to bottle feed. I personally examined the patient and there are no unintended foreign objects in the vagina and all sponge counts were correct. Marguerite Balderas CNM was present throughout the entire delivery as well as Dr. Navi Cordoba Ore Miner Blasting in Attendence: Yes MARGUERITE BALDERAS CNM Aug 31, 2018 20:16
--- NOTE | 2018-08-31 20:19 | Anesthesia Progress Note ---
Progress/Maintenance Anesthesia Note Date: Aug 31, 2018 Anesthesia Note Time: 20:15 Pain Intensity: 0 Pump: Off Sensory Level: T-12 Motor Level: Bending Knees-Bilateral Dilatation: 10 Position: Semi-Fowlers Assessment and Plan Assessment No further medication was given. Pt. was able to push very well and had excellent tolerance of delivery. Empty syringe attached to epidural catheter and RN agrees to remove with ambulation. Patient instructed the first ambulation is to be with help of nursing staff. Instructed to preform deep knee bends at bedside before walking. Anesthesia Stop Day: Aug 31, 2018 Anesthesia Stop Time: 20:15 ALTAF MORGAN CRNA Aug 31, 2018 20:19
[2018-08-31] MEDS: GLYCERIN/WITCH HAZEL LEAF 1 PK TP PRN (20:44)
[2018-08-31] MEDS ORDERED: ONDANSETRON 4 MG/2 ML VIAL IVP ONE (21:15)
[2018-08-31] MEDS: IBUPROFEN 800 MG TAB PO SCH (21:34)
[2018-08-31] MEDS: DOCUSATE CALCIUM 240 MG CAP PO SCH (21:34)
[2018-08-31 22:36] VITALS: BP 114/62
[2018-09-01 03:15] VITALS: BP 95/54
[2018-09-01] MEDS: IBUPROFEN 800 MG TAB PO SCH ×2 (04:22→16:48)
--- NOTE | 2018-09-01 08:42 | OB/GYN Progress Note ---
OB Subjective Progress Notes Subjective Doing good this morning. Reports minimal vaginal bleeding. Bottle feeding. Ambulatory with out any difficulty. Voiding with out any dysuria or difficulty. GI: NEG Nausea, NEG Vomiting, NEG Flatus, NEG Bowel Movement : Voiding Well, Vaginal Bleeding, Scant Pain: Mild, Tolerating PO Pain Meds Neurological: No Headache, No Other Eyes: No Visual Disturbances OB Objective Physical Exam Vital Signs Date Time Temp Pulse Resp B/P (MAP) Pulse Ox O2 Delivery O2 Flow Rate FiO2 09/01/18 03:15 97.2 75 16 95/54 (68) 97 Room Air Intake and Output 09/01/18 07:00 Intake Total 3000 ml Output Total 700 ml Balance 2300 ml Intake Oral 500 ml IV Total 2500 ml Output Urine Total 700 ml # Voids 1 General Appearance: Alert/Awake/No Acute Distress Neurological: No Gross deficits Eyes: Normal Extraocular Movement & Vison ENT: Normal Neck: No Masses Cardiovascular: Normal Rhythm & Peripheral Pulses Respiratory: No Respiratory Distress, Clear to Auscultation : Normal Musculoskeletal: No Weakness/Pain Extremities: No Cyanosis,Clubbing or Edema Integumentary: Skin Intact without Lesions or Rash Psychological: Alert & Oriented X3, Appropriate Mood & Affect Result Diagram: 09/01/18 0604 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 Will start on Iron therapy. Plan to discharge home on 09/02/18. YUE CAMACHO DO Sep 01, 2018 08:42
[2018-09-01 09:06] VITALS: BP 109/63
[2018-09-01] MEDS: DOCUSATE CALCIUM 240 MG CAP PO SCH ×2 (09:14→20:53)
[2018-09-01] MEDS ORDERED: FERROUS SULFATE 325 MG TAB PO ONE (09:30)
[2018-09-01] MEDS: LR(*) 1000 ML BAG 1,000 ML IV SCH ×2 (10:16→20:58)
[2018-09-01 11:20] VITALS: BP 104/62
--- NOTE | 2018-09-01 13:45 | Anesthesia Post Eval Note ---
Anesthesia Post Eval Note Vital Signs Date Time Temp Pulse Resp B/P (MAP) Pulse Ox O2 Delivery O2 Flow Rate FiO2 09/01/18 11:20 97.4 70 16 104/62 (76) 95 Room Air Pt able to participate in Eval: Yes Cardiovascular Status: Satisfactory Respiratory Status: Satisfactory Pain Managment: Satisfactory PO Nausea/Vomiting: Satisfactory Temperature Management: Satisfactory Mental Status: Satisfactory, Alert, Oriented X3 Post-Op Hydration Status: Satisfactory, Tolerating PO Well, Voiding w/o Difficulty Anesthesia Type: CSE Anesthesia Tolerance: Tolerated procedure well without apparent anesthetic complications. LP site clear, no redness or edema. Denies headache or any residual paresthesia. Vital Signs Stable, Patient comfortable and condition stable. ALTAF MORGAN CRNA Sep 01, 2018 13:45
[2018-09-01 16:10] VITALS: BP 108/68
[2018-09-01 19:57] VITALS: BP 112/75
[2018-09-01] MEDS ORDERED: DIPHTH/TETANUS/ACEL. PERTUSSIS IM ONLY ONE (20:15)
[2018-09-01] MEDS ORDERED: MEASLES,MUMP,RUBELLA VAC 0.5ML SUBQ ONE (20:15)
[2018-09-01] MEDS ORDERED: INFLUENZA VIRUS VAC 0.5ML SYR IM ONLY ONE (20:15)
[2018-09-01 22:59] VITALS: BP 121/76
[2018-09-02] MEDS: IBUPROFEN 800 MG TAB PO SCH (00:57)
[2018-09-02 02:48] VITALS: BP 114/58
[2018-09-02] MEDS ORDERED: SIMETHICONE 80 MG CHEW PO PRN (06:30)
[2018-09-02] MEDS: DOCUSATE CALCIUM 240 MG CAP PO SCH (08:29)
--- NOTE | 2018-09-02 08:37 | OB/GYN Progress Note ---
OB Subjective Progress Notes Subjective Doing good this morning. Reports feeling tired secondary to baby feeding habits. Lochia appropriate. Tolerating po intake. Voiding with out any difficulty. Ambulatory in room and hallway. Bottle feeding. GI: NEG Nausea, NEG Vomiting, NEG Flatus, NEG Bowel Movement : Voiding Well Pain: Mild, Comfortable, Tolerating PO Pain Meds Neurological: No Headache, No Other Eyes: No Visual Disturbances OB Objective Physical Exam Vital Signs Date Time Temp Pulse Resp B/P (MAP) Pulse Ox O2 Delivery O2 Flow Rate FiO2 09/02/18 02:48 97.4 73 22 114/58 (76) 95 Room Air Intake and Output 09/02/18 06:59 Intake Total 660 ml Balance 660 ml Intake Oral 660 ml # Voids 2 General Appearance: Alert/Awake/No Acute Distress Neurological: No Gross deficits Eyes: Normal Extraocular Movement & Vison ENT: Normal Neck: No Masses Cardiovascular: Normal Rhythm & Peripheral Pulses Respiratory: No Respiratory Distress, Clear to Auscultation : Normal Musculoskeletal: No Weakness/Pain Extremities: No Cyanosis,Clubbing or Edema Integumentary: Skin Intact without Lesions or Rash Psychological: Alert & Oriented X3, Appropriate Mood & Affect Result Diagram: 09/01/18 0604 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 Will plan for discharge home today. Follow up in 2 weeks. YUE CAMACHO DO Sep 02, 2018 08:37
[2018-09-02 08:39] VITALS: BP 118/73
--- NOTE | 2018-09-02 08:40 | OB/GYN Discharge Summary ---
Discharge Summary Reason for Hosp/Final Diag: (1) 38 weeks gestation of Status: Resolved (2) Spontaneous rupture of amniotic membranes Status: Resolved (3) Status post vaginal delivery Hospital Course & Plan: Pt presented to L&D with a complaint of "My water broke." She was noted to be grossly ruptured. She walked in the halls for a few hours and began to contract with increased frequency and intensity. Made it to complete and plus two. See delivery note for details of procedure. Pt remained in the hospital for two days post . She was meeting post goals and was discharged home on PPD # 2. Lates Vital Signs Vital Signs Date Time Temp Pulse Resp B/P (MAP) Pulse Ox O2 Delivery O2 Flow Rate FiO2 09/02/18 02:48 97.4 73 22 114/58 (76) 95 Room Air Weight (Pounds): 150 Result Diagram: 09/01/18 0604 Condition: Improved Discharge: Home Home Meds Active Scripts Hydrocodone Bit/Acetaminophen (HYDROCODON-ACETAMINOPHEN 5-325) 1 Each Tablet, 1- 2 EACH PO Q6H PRN for PAIN, #15 TAB 0 Refills Prov:YUE CAMACHO DO 09/02/18 Reported Medications Acetaminophen (TYLENOL EXTRA STRENGTH) 500 Mg Tablet, 500 MG PO, TAB 08/31/18 Ranitidine Hcl (ZANTAC) 150 Mg Tablet, 150 MG PO BID, TAB 08/31/18 Ferrous Sulfate, Dried (IRON) Unknown Strength Tablet.er, PO 03/20/18 Vits W-Ca,Fe,Fa(<1MG) ( VITAMINS) 1 Each Tablet, 1 EACH PO DAILY, TAB 02/28/18 Discontinued Reported Medications Metoclopramide Hcl (METOCLOPRAMIDE HCL) 10 Mg Tablet, 10 MG PO QID PRN for NAUSEA/VOMITING 02/28/18 Discontinued Scripts Albuterol Sulfate (VENTOLIN HFA) 18 Gm Inh, 2 PUFF INH Q4-6H PRN for SHORTNESS OF BREATH, #1 INH Prov:LI GLORIAP 06/23/18 Azithromycin (Z-PACK) 250 Mg Tablet, 1-2 TAB PO QDAY, #6 DOSE-PACK 0 Refills Take 2 tablets on the first day, then 1 tablet per day for four days. Prov:YUE CAMACHO DO 12/20/18 Follow up Referrals: POLICYHOLDER INFORMATION CLERK - In Two Weeks @ [facility] with YUE CAMACHO DO [facility] [phone], Dr. Camacho [phone] Follow up in: 6 wks PP or PO, 2 wks PO Discharge Diet: As Tolerates Discharge Activity: As Tolerates, Pelvic Rest YUE CAMACHO DO Sep 02, 2018 08:40
[2018-09-02] MEDS ORDERED: FERR-53 PO (08:42)
[2018-09-02] MEDS ORDERED: LOR5/325 PO (08:42)
[2018-09-02] MEDS ORDERED: IBUP800T37 PO (08:42)
[2018-09-02] MEDS ORDERED: IBUPROFEN 800 MG TAB PO SCH (09:00)
[2018-09-02] MEDS ORDERED: FERROUS SULFATE 325 MG TAB PO SCH (09:00)
[2018-09-02] MEDS: GLYCERIN/WITCH HAZEL LEAF 1 PK TP PRN (12:17)
== END 2018-09-02 13:47 | disposition home or self-care (01) | DRG 807 ==
LOC: OB 14:04
PROVIDERS: ADMIT Obstetrics & Gynecology; ATTEND Obstetrics & Gynecology
PROC: 10E0XZZ Delivery of Products of Conception, External Approach (ICD-10-PCS; principal; 2018-08-31)
DX: O69.81X0 Labor and delivery complicated by cord around neck, without compression, not applicable or unspecified (principal); Z37.0 Single live birth; O70.0 First degree perineal laceration during delivery; Z3A.38 38 weeks gestation of pregnancy; Z88.0 Allergy status to penicillin
CPT/HCPCS: 36415; 85025; 85027; 86850; 86900; 86901; J2405; J2590; J3010; J7120; S0020

== ENCOUNTER 2018-10-25 14:30 | Emergency (ER) | payer MEDICAID ==
[2018-08-31 14:22] VITALS: Wt 61.2 kg
[~2018-10-25 14:30] MED LIST changes: +ACET500T68 PO; +FERR-53 PO; +IBUP800T37 PO; +LOR5/325 PO; +RANI-366 PO
[2018-10-25] MEDS ORDERED: ETON68IM SQ (14:43)
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
[2018-10-25 15:32] LABS: PLATELET COUNT, AUTOMATED 256 K/uL (150-450)
[2018-10-25 16:41] VITALS: BP 132/82
== END 2018-10-25 16:41 | disposition home or self-care (01) ==
LOC: ER 14:57
DX: F32.9 Major depressive disorder, single episode, unspecified (principal)
CPT/HCPCS: 36415; 80305; 81001; 81025; 83735; 84443; 85025; 99283; G0480; 80320; 80329; 82040; 82247; 82310; 82374; 82435; 82565; 82947; 84075; 84132; 84155; 84295; 84450; 84460; 84520

== ENCOUNTER → 2019-02-19 | Outpatient (CLI) | payer MEDICAID ==
[2018-08-31 14:22] VITALS: BMI 29.3
[~2019-02-19] MED LIST changes: -DIPH0.5D12 IM; +DIPH0.5S2 IM; +ETON68IM SQ; -RANI-366 PO; +RANI-54 PO
== END ==
LOC: LAB 10:44
PROVIDERS: ATTEND Obstetrics & Gynecology
DX: Z72.51 High risk heterosexual behavior (principal); N94.9 Unspecified condition associated with female genital organs and menstrual cycle; N89.8 Other specified noninflammatory disorders of vagina
CPT/HCPCS: 36415; 86592; 86694; 86703; 86803; 87070; 87210; 87340